=== PATIENT | female | born 1975 | race Caucasian/White ===

== ENCOUNTER → 2017-12-12 | Emergency (ER) | payer OTHER ==
[~2017-12-12] VITALS: Ht 165.1 cm; Wt 83.9 kg
[~2017-12-12] MED LIST: ACIDOPHILUS1 EAC1 PO; AMOX1TAB12 PO; DULERA 100 MCG/13 GM IH; LYRICA150 MG; MUCINEX D1 TAB.SR . PO; NABUMETONE750 MG PO; ORPH100T PO; PROTONIX40 MG PO; ZITHROMAX500 MG PO
== END | disposition home or self-care (01) ==
LOC: ER 20:10
DX: S01.02XA Laceration with foreign body of scalp, initial encounter (principal); W26.8XXA Contact with other sharp object(s), not elsewhere classified, initial encounter; Y93.89 Activity, other specified; Y92.018 Other place in single-family (private) house as the place of occurrence of the external cause; Y99.8 Other external cause status

== ENCOUNTER 2018-02-26 11:01 | Emergency (ER) | payer OTHER ==
[~2018-02-26] VITALS: Ht 165.1 cm; Wt 83.9 kg
== END 2018-02-26 15:39 | disposition home or self-care (01) ==
LOC: ER 11:01
DX: S92.411A Displaced fracture of proximal phalanx of right great toe, initial encounter for closed fracture (principal); S60.032A Contusion of left middle finger without damage to nail, initial encounter; S60.042A Contusion of left ring finger without damage to nail, initial encounter; W22.09XA Striking against other stationary object, initial encounter; Y93.01 Activity, walking, marching and hiking; Y92.018 Other place in single-family (private) house as the place of occurrence of the external cause; Y99.8 Other external cause status

== ENCOUNTER 2018-05-05 07:52 | Outpatient (CLI) | payer OTHER | END 2018-05-05 07:55 | disposition home or self-care (01) | LOC: SONOGRAMA 07:52 | DX: E04.2 Nontoxic multinodular goiter (principal) ==

== ENCOUNTER 2018-07-12 16:31 | Emergency (ER) | payer OTHER ==
[~2018-07-12] VITALS: Ht 165.1 cm; Wt 81.2 kg
[2018-07-12] MEDS ORDERED: PROTONIX40 MG (16:41)
== END 2018-07-12 20:38 | disposition home or self-care (01) ==
LOC: ER 16:31
DX: K52.89 Other specified noninfective gastroenteritis and colitis (principal)

== ENCOUNTER 2018-10-08 20:04 | Emergency (ER) | payer OTHER ==
[~2018-10-08] VITALS: Ht 165.1 cm; Wt 83.9 kg
[~2018-10-08 20:04] MED LIST changes: +PROTONIX40 MG
== END 2018-10-08 22:38 | disposition home or self-care (01) ==
LOC: ER 20:04
DX: J11.1 Influenza due to unidentified influenza virus with other respiratory manifestations (principal); J06.9 Acute upper respiratory infection, unspecified

== ENCOUNTER 2018-11-10 09:01 | Emergency (ER) | payer OTHER ==
[~2018-11-10] VITALS: Ht 165.1 cm; Wt 65.8 kg
== END 2018-11-10 15:04 | disposition home or self-care (01) ==
LOC: ER 09:01
DX: J06.9 Acute upper respiratory infection, unspecified (principal); B34.9 Viral infection, unspecified

== ENCOUNTER 2019-05-02 12:09 | Emergency (ER) | payer OTHER ==
[~2019-05-02] VITALS: Ht 165.1 cm; Wt 82.6 kg
[2019-05-02] MEDS ORDERED: LYRICA150 MG (12:15)
[2019-05-02] MEDS ORDERED: ZITHROMAX500 MG PO (15:56)
[2019-05-02] MEDS ORDERED: MUCINEX DM ER1 EAC1 PO (15:56)
== END 2019-05-02 16:00 | disposition home or self-care (01) ==
LOC: ER 12:09
DX: B34.9 Viral infection, unspecified (principal); J32.8 Other chronic sinusitis; J11.1 Influenza due to unidentified influenza virus with other respiratory manifestations